=== PATIENT | male | born 1940 | race Caucasian/White ===

== ENCOUNTER 2016-10-21 11:48 | Inpatient (IN) | payer MEDICAID ==
[~2016-10-21] VITALS: Ht 162.6 cm; Wt 73.5 kg
[2016-10-21 11:51] VITALS: Ht 162.6 cm; Wt 73.5 kg
[2016-10-21] MEDS ORDERED: ALBUTEROL 0.083% (NEB) 2.5 MG/3 ML AMP NEB STA (12:10)
[2016-10-21] MEDS ORDERED: IPRATROPIUM (NEB) 0.5 MG/2.5 ML AMP NEB STA (12:10)
[2016-10-21] MEDS ORDERED: SIMV10TA PO (12:10)
[2016-10-21] MEDS ORDERED: AZITHROMYCIN 500MG/NS (PMX) 250 ML IV STA (12:10)
[2016-10-21] MEDS ORDERED: SODIUM CHLORIDE 0.9% 1L BAG IV* STA (12:10)
[2016-10-21] MEDS ORDERED: CEFTRIAXONE 1 GM/50 ML (PMX) 50 ML IVPB STA (12:10)
[2016-10-21] MEDS ORDERED: MOME13HF2 INHALATION (12:11)
[2016-10-21] MEDS ORDERED: AMLO5TAB4 PO (12:11)
[2016-10-21] MEDS ORDERED: ACETAMINOPHEN 500 MG TAB PO STA (12:16)
--- NOTE | 2016-10-21 12:16 | ERA ---
ER Documentation Chief Complaint Date/Time DATE: 10/21/16 TIME: 12:12 Chief Complaint dizziness, clifford, cough/congestion; HPI Press Bucker use. Pleasant 75-year-old male history of hypertension, prediabetes who presents with 3 days of cough congestion. The patient describes mildly productive cough, shortness of breath and increased respiratory effort over this timeframe. He also describes generalized malaise and dizziness. His family member states headache but he denies headache. No rash, no neck stiffness. He denies of any abdominal pain, nausea vomiting or diarrhea. He states that he has not been hospitalized in the last 3 months. ROS All systems reviewed and are negative except as per history of present illness. Medications Home Meds Reported Medications Amlodipine Besylate* (Norvasc*) 5 Mg Tablet, 5 MG PO DAILY, TAB 10/21/16 Mometasone-Formoterol (Dulera) 100-5 Mcg - 13 Gm Hfa.aer.ad, 2 PUFFS INHALATION DAILY, #1 INHALER 10/21/16 Simvastatin* (Zocor*) 10 Mg Tablet, 10 MG PO QHS, #30 TAB 10/21/16 Allergies Allergies: Coded Allergies: No Known Allergy (Unverified , 10/21/16) PMhx/Soc As documented in HPI FmHx Family History: No diabetes Physical Exam Vitals Vital Signs Date Time Temp Pulse Resp B/P Pulse Ox O2 Delivery O2 Flow Rate FiO2 10/21/16 12:23 105 18 94 21 10/21/16 11:51 100.1 110 22 148/64 91 Physical Exam General: Well developed, well nourished, no acute distress Head: Normocephalic, atraumatic. Eyes: Pupils equally reactive, EOM intact ENT: Moist mucous membranes Neck: Supple, no lymphadenopathy Respiratory: Slight tachypnea, rales at the left base with slight increased work of breathing Cardiovascular: Slight tachycardia, no murmurs, rubs, or gallops Abdominal: Soft, non-tender, non-distended, no peritoneal signs : Deferred MSK: No edema, no unilateral swelling, 5/5 strength Neurologic: Alert and oriented, moving all extremities, normal speech, no focal weakness, no cerebellar signs, no meningismus Skin: No rash Psych: Normal mood Result Diagram: 10/21/16 1215 10/21/16 1215 Results 24 hrs Laboratory Tests Test 10/21/16 12:15 White Blood Count 10.610^3/ul Red Blood Count 4.4410^6/ul Hemoglobin 12.8g/dl Hematocrit 40.1% Mean Corpuscular Volume 90.3fl Mean Corpuscular Hemoglobin 28.8pg Mean Corpuscular Hemoglobin Concent 31.9g/dl Red Cell Distribution Width 13.8% Platelet Count 52310^3/UL Mean Platelet Volume 12.0fl Neutrophils % 78.6% Lymphocytes % 10.0% Monocytes % 9.1% Eosinophils % 1.3% Basophils % 0.3% Nucleated Red Blood Cells % 0.0/100WBC Neutrophils # 8.310^3/ul Lymphocytes # 1.110^3/ul Monocytes # 1.010^3/ul Eosinophils # 0.110^3/ul Basophils # 0.010^3/ul Nucleated Red Blood Cells # 0.010^3/ul Prothrombin Time 14.4Sec Prothrombin Time Ratio 1.1 INR International Normalized Ratio 1.12 Activated Partial Thromboplast Time 33.2Sec Sodium Level 140mmol/L Potassium Level 3.8mmol/L Chloride Level 99mmol/L Carbon Dioxide Level 26mmol/L Anion Gap 19 Blood Urea Nitrogen 20mg/dl Creatinine 1.06mg/dl Glucose Level 149mg/dl Lactic Acid Level 2.0mmol/L Calcium Level 9.1mg/dl Total Bilirubin 0.3mg/dl Direct Bilirubin 0.00mg/dl Indirect Bilirubin 0.3mg/dl Aspartate Amino Transf (AST/SGOT) 39IU/L Alanine Aminotransferase (ALT/SGPT) 48IU/L Alkaline Phosphatase 132IU/L Troponin I < 0.012ng/ml Total Protein 8.1g/dl Albumin 3.9g/dl Globulin 4.20g/dl Albumin/Globulin Ratio 0.92 Current Medications Medications (Trade) Dose Ordered Sig/Peri Route PRN Reason Start Time Stop Time Status Last Admin Dose Admin Sodium Chloride 2280 ml 2,280 ml BOLUS OVER 2 HOURS STAT IV* 10/21/16 12:10 10/21/16 12:12 DC 10/21/16 12:29 Ceftriaxone Sodium 50 ml @ 100 mls/hr ONCE STAT IVPB 10/21/16 12:10 10/21/16 12:39 DC 5/18/17 12:29 Azithromycin (Zithromax 500mg/ NS (Pmx)) 250 ml @ 250 mls/hr ONCE STAT IV 10/21/16 12:10 10/21/16 13:09 DC Albuterol (Proventil 0.083% (Neb)) 2.5 mg ONCE STAT NEB 10/21/16 12:10 10/21/16 12:13 DC 10/21/16 12:22 Ipratropium [place] (Atrovent 0.02% (Neb)) 0.5 mg ONCE STAT NEB 10/21/16 12:10 10/21/16 12:13 DC 10/21/16 12:22 Acetaminophen (Tylenol Tab) 1,000 mg ONCE STAT PO 10/21/16 12:16 10/21/16 12:27 DC 10/21/16 12:29 Procedures/MDM EKG, MONITORS, & DIAGNOSTIC IMAGING: EKG: I reviewed and interpreted a 12-lead EKG. Rhythm: Normal sinus rhythm Ectopy: None Intervals: No abnormalities ST segments: No elevations or depressions T waves: No contiguous inversions Chest x-ray: I reviewed and interpreted a 1 view of the chest Mediastinum: No enlargement Cardiac silhouette: No cardiomegaly Airspace: Bilateral lower lung infiltrates right greater than left Bones: No evidence of fracture LAB INTERPRETATION: No significant leukocytosis but left shift, normal lactic acid, electrolytes normal MEDICAL DECISION MAKING: The patient presents with signs and symptoms very consistent with acute community-acquired pneumonia. The patient has Sirs criteria with tachypnea, tachycardia. His oxygen saturation is less than 95% on room air. The patient has no risk factors for healthcare associated pneumonia. He will benefit from breathing treatment, fluid resuscitation, severe sepsis screening, and likely inpatient hospitalization. At this time the patient does not require positive pressure ventilation, intubation, pressor support. No indication for central line presently. ER COURSE: A 30 cc/kg bolus of saline provided. Patient was given antipyretic, breathing treatment, ceftriaxone, azithromycin after blood cultures. At this time the patient does not meet severe sepsis criteria. However, the patient does have persistent oxygen requirement. I would recommend inpatient hospitalization. The family and patient agree. I kept the patient and/or family informed of laboratory and diagnostic imaging results throughout the emergency room course. DISPOSITION PLAN: Medical surgical admission for management of community-acquired pneumonia CONSULTATION: Accepting care team and consultations: I discussed the current laboratory data, diagnostic imaging and emergency care provided. Admitting team: Dr. Wolf Admitting team indication: Insurance directed Departure Diagnosis: Primary Impression: Community acquired pneumonia Additional Impressions: Sepsis Qualified Code: A41.9 - Sepsis, due to unspecified organism Hypoxia Condition: Stable RENEA MOBLEY MD October 21, 2016 12:16
[2016-10-21 12:45] LABS: ADD SCAN DIFF NO
[2016-10-21 12:50] LABS: BASOPHILS % 0.3 % (0.0-2.0); EOSINOPHILS # 0.1 10^3/ul (0.0-0.5); EOSINOPHILS % 1.3 % (0.0-7.0); HEMATOCRIT 40.1 % (42.0-52.0); HEMOGLOBIN 12.8 g/dl (14.0-18.0); LYMPHOCYTES # 1.1 10^3/ul (0.8-2.9); MEAN CORPUSCULAR HEMOGLOBIN 28.8 pg (29.0-33.0); MEAN CORPUSCULAR HGB CONC 31.9 g/dl (32.0-37.0); MEAN CORPUSCULAR VOLUME 90.3 fl (82.0-101.0); MONOCYTES % 9.1 % (0.0-11.0); NEUTROPHIL # 8.3 10^3/ul (1.6-7.5); NEUTROPHILS % 78.6 % (39.0-77.0); PLATELET COUNT 206 10^3/UL (140-415); RED BLOOD COUNT 4.44 10^6/ul (4.70-6.10); RED CELL DISTRIBUTION WIDTH 13.8 % (11.5-14.5); WHITE BLOOD COUNT 10.6 10^3/ul (4.8-10.8)
--- NOTE | 2016-10-21 12:56 | RADRPT ---
PROCEDURE: XR Chest 1 view. CLINICAL INDICATION: Shortness of breath, possible sepsis TECHNIQUE: AP views of the chest were obtained. COMPARISON: None. FINDINGS: The heart is large. Calcified atherosclerosis is noted in the aorta. The lungs are hypoinflated. P atchy atelectasis versus mild infiltrates are seen at the lung bases. No pneumothorax as visualized. The osseous structures are osteopenic, but appear grossly intact. Degenerative changes are noted in the shoulders. IMPRESSION: Cardiomegaly with calcified atherosclerosis in the aorta. Hypoinflated lungs with patchy atelectasis versus mild infiltrates at the lung bases. RPTAT: AA .Kush Ghosh MD, MD Date Time Electronically viewed and signed by .Kush Ghosh MD, MD on 10/21/2016 12:55 .P/
[2016-10-21 13:02] LABS: ALBUMIN 3.9 g/dl (3.3-4.9); CHLORIDE 99 mmol/L (97-110)
[2016-10-21 13:03] LABS: INR 1.12; POTASSIUM 3.8 mmol/L (3.5-5.1); PROTIME 14.4 Sec (12.2-14.2); PT RATIO 1.1; SODIUM 140 mmol/L (135-144)
[2016-10-21 13:04] LABS: PARTIAL THROMBOPLASTIN TIME 33.2 Sec (25.0-35.0)
[2016-10-21 13:05] LABS: ALANINE AMINOTRANSFERASE 48 IU/L (13-69); ALBUMIN/GLOBULIN RATIO 0.92; ALKALINE PHOSPHATASE 132 IU/L (42-121); ANION GAP 19 (8-16); ASPARTATE AMINO TRANSFERASE 39 IU/L (15-46); BILIRUBIN,INDIRECT 0.3 mg/dl (0-1.1); BILIRUBIN,TOTAL 0.3 mg/dl (0.2-1.3); BLOOD UREA NITROGEN 20 mg/dl (7-20); CARBON DIOXIDE 26 mmol/L (21-31); CREATININE 1.06 mg/dl (0.61-1.24); TOTAL PROTEIN 8.1 g/dl (6.1-8.1)
[2016-10-21 13:06] LABS: CALCIUM 9.1 mg/dl (8.4-10.2); GLUCOSE 149 mg/dl (70-220)
[2016-10-21 13:19] LABS: TROPONIN-I < 0.012 ng/ml (0.00-0.12)
[2016-10-21] MEDS ORDERED: ONDANSETRON 4 MG INJ IV PRN ×2 (14:30→15:30)
[2016-10-21] MEDS ORDERED: ACETAMINOPHEN 325 MG TAB PO PRN ×2 (14:30→15:30)
[2016-10-21 15:08] LABS: ADD UMIC YES; URINE BILIRUBIN (Dip) NEGATIVE (NEGATIVE); URINE BLOOD (Dip) 1+ (NEGATIVE); URINE COLOR YELLOW (YELLOW); URINE GLUCOSE (Dip) NEGATIVE (NEGATIVE); URINE KETONES (Dip) NEGATIVE (NEGATIVE); URINE LEUKOCYTE ESTERASE (Dip) 3+ (NEGATIVE); URINE NITRITE (Dip) NEGATIVE (NEGATIVE); URINE TOTAL PROTEIN (Dip) NEGATIVE (NEGATIVE); URINE UROBILINOGEN (Dip) 0.2 E.U./dL (0.1-1.0)
[2016-10-21] MEDS ORDERED: morphine 2 MG INJ IV PRN (15:30)
[2016-10-21] MEDS ORDERED: hydrALAzine 20 MG INJ IV PRN (15:30)
[2016-10-21] MEDS ORDERED: BISACODYL (EC) 5 MG TAB PO PRN (15:30)
[2016-10-21] MEDS ORDERED: MAGNESIUM HYDROXIDE 30ML CUP PO PRN (15:30)
[2016-10-21] MEDS ORDERED: HYDROCODONE/APAP (5/325) TAB PO PRN (15:30)
[2016-10-21] MEDS ORDERED: NACL 0.9% 3 ML SYG IV SCH (15:30)
[2016-10-21 15:31] LABS: BACTERIA,URINE MANY
--- NOTE | 2016-10-21 16:21 | HP ---
DATE OF ADMISSION: 10/21/2016 TIME OF EVALUATION: 1500. REASON FOR ADMISSION: Dizziness, cough, congestion. HISTORY OF PRESENT ILLNESS: This is a 75-year-old male with past medical history of essential hypertension and dyslipidemia who came to the emergency room with chief complaint of cough, chest congestion, and dizziness that has been going on for the past and 3 days. The patient was also complaining of a productive cough and increased respiratory effort. He also verbalized generalized malaise and dizziness. The patient denied any headache, although the patient's family members reported a headache. There was no recent travel outside the country. There is no recent hospitalization in the past 3 months. The patient denied any chest pain. He denied any nausea, vomiting, abdominal pain, diarrhea, hematochezia or dysuria. The patient's family verbalized that he has been compliant with his home medications. The patient was noticed to be taking Dulera at home. The patient's family denied any history of COPD. In the emergency room, the patient was noticed to have febrile illness with a temperature of 100.1. The patient had no leukocytosis. He underwent a chest x- ray that showed cardiomegaly with calcified atherosclerosis in the aorta, along with hypoinflated lungs with patchy atelectasis versus mild infiltrates at the lung bases. The patient's urinalysis showed urine leukocyte esterase 3+, urine microscopic WBC greater than 200. The patient was treated with IV Rocephin and IV Zithromax in the emergency room along with inhaled bronchodilators and IV fluids. PAST MEDICAL HISTORY: Essential hypertension, dyslipidemia. PAST SURGICAL HISTORY: Prostate surgery. HOME MEDICATIONS: 1. Amlodipine 5 mg p.o. daily. 2. Dulera 100/5 mcg 2 puffs inhalation daily. 3. Zocor 10 mg p.o. at bedtime. ALLERGIES: NO KNOWN DRUG ALLERGIES. SOCIAL HISTORY: The patient lives at home with his family. No history of tobacco, alcohol or illicit drug use recently. REVIEW OF SYSTEMS: A 12-point review of systems were made and review of systems were negative other than what is mentioned in history of present illness. PHYSICAL EXAMINATION: VITAL SIGNS: Temperature 100.1, pulse rate 105, respiratory rate 18, blood pressure 142/60, oxygen saturation 94% on room air. GENERAL: This is slightly overweight male lying in bed in no apparent distress. HEENT: Head normocephalic and atraumatic. Eyes: Anicteric sclerae. Conjunctivae clear. ENT: Nasal septum is midline. Oral mucosa is dry. NECK: Supple. No JVD noticed. RESPIRATORY: Bilateral diminished breath sounds. Bilateral scattered rhonchi heard. No use of accessory muscles of respiration. CARDIAC: Regular rate and rhythm with a grade II/ systolic ejection murmur. GASTROINTESTINAL: Distended, nontender. Bowel sounds positive in all 4 quadrants. GENITOURINARY: Deferred. EXTREMITIES: No cyanosis, no clubbing, no edema. Peripheral pulses palpable. NEUROLOGIC: The patient is awake, alert and oriented. Cranial nerves are grossly intact. LABORATORY AND DIAGNOSTIC DATA: WBC 10.6, hemoglobin 12.8, hematocrit 40.1, platelet count 206. WBC 10.6. hemoglobin 12.8, hematocrit 40.1, platelet count 206. Sodium 140, potassium 3.8, chloride 99, carbon dioxide 26, anion gap 19, BUN 20, creatinine 1.00, glucose 149, calcium 9.1, total bilirubin 0.3, AST 39, ALT 48, alkaline phosphatase 132. Troponin I less than 0.012. Total protein 8.1. PT 14.4, INR 1.13, PTT 33.2. Urinalysis: Urine nitrite negative, urine leukocyte esterase 3+, urine microscopic WBC greater than 200. Chest x-ray: Cardiomegaly with calcified atherosclerosis in the aorta. Hypoinflated lungs with patchy atelectasis versus mild infiltrates at the lung bases. 12-lead EKG: Normal sinus rhythm. IMPRESSION: This is a 75-year-old male with past medical history of essential hypertension and dyslipidemia who came to the emergency room with multiple complaints. He was found to have evidence of sepsis with underlying community- acquired pneumonia and possible underlying urinary tract infection. He will be admitted here for further treatment and evaluation. ASSESSMENT AND PLAN: 1. Sepsis, most probably secondary to underlying pneumonia and urinary tract infection. No evidence of septic shock. Lactic acid level is within normal limits. The patient will be started on empiric antibiotics. Pancultures will be obtained. 2. Community-acquired pneumonia. The patient will be continued on Rocephin and Zithromax. Sputum sample will be obtained. The patient will be maintained on inhaled bronchodilators. The patient had chest congestion upon physical examination. 3. Essential hypertension. The patient will be maintained on antihypertensives including p.r.n. antihypertensives for any systolic blood pressure readings greater than 160 mmHg. 4. Possible underlying urinary tract infection. Positive urinalysis. Urine cultures will be obtained. The patient will be maintained on empiric antibiotics. 5. Dyslipidemia. The patient will be maintained on statins. A fasting lipid panel will be obtained. 6. Normocytic hypochromic anemia. Etiology unclear. Will monitor the hemoglobin and hematocrit closely. We will order an iron panel. Plan. The patient will be admitted to inpatient medical/surgical floor. The patient will be started on a regular diet. The patient will be started on deep venous thrombosis prophylaxis and gastrointestinal prophylaxis. The patient will remain a FULL CODE. Activities will be as tolerated. Based on the patient's clinical presentation, he most probably requires at least 1 midnight's stay for further management and evaluation of his clinical presentation. The case and management of this patient was fully discussed with Dr. Keith. MARY KEITH MD, AM/LYNETTE Conf#: [id number] DID#: [id number] MTDD
[2016-10-21 16:46] LABS: IRON 19 ug/dl (35-150)
[2016-10-21 16:54] LABS: TOTAL IRON BINDING CAPACITY 215 ug/dl (241-421)
[2016-10-21 17:15] LABS: THYROID STIMULATING HORMONE 6.26 MIU/L (0.465-4.680)
[2016-10-21] MEDS: SOD CHLORIDE 0.9% 1,000 ML IV SCH (17:32)
[2016-10-21 18:11] VITALS: BP 149/67; PULSE 82; RESP 18; TEMP 97.9
[2016-10-21] MEDS: ATORVASTATIN 10 MG TAB PO SCH (20:48)
[2016-10-21] MEDS: FAMOTIDINE 20 MG TAB PO SCH (20:48)
[2016-10-21 20:55] VITALS: BP 137/65; RESP 17
[2016-10-21] MEDS: ALBUTEROL/IPRATROPIUM (NEB) 3 ML AMP NEB SCH (22:34)
[2016-10-21] MEDS: SALMETEROL/FLUTICASONE 250/50 INHA INH SCH (23:00)
[2016-10-22] MEDS: ALBUTEROL/IPRATROPIUM (NEB) 3 ML AMP NEB SCH ×4 (01:47→19:42)
[2016-10-22 05:29] LABS: ADD SCAN DIFF NO
[2016-10-22 05:35] LABS: BASOPHILS % 0.2 % (0.0-2.0); EOSINOPHILS # 0.2 10^3/ul (0.0-0.5); EOSINOPHILS % 2.3 % (0.0-7.0); HEMATOCRIT 36.5 % (42.0-52.0); HEMOGLOBIN 11.5 g/dl (14.0-18.0); LYMPHOCYTES # 0.9 10^3/ul (0.8-2.9); LYMPHOCYTES % 9.2 % (15.0-51.0); MEAN CORPUSCULAR HEMOGLOBIN 28.5 pg (29.0-33.0); MEAN CORPUSCULAR HGB CONC 31.5 g/dl (32.0-37.0); MEAN CORPUSCULAR VOLUME 90.6 fl (82.0-101.0); MEAN PLATELET VOLUME 12.3 fl (7.4-10.4); MONOCYTE # 0.8 10^3/ul (0.3-0.9); MONOCYTES % 8.8 % (0.0-11.0); NEUTROPHIL # 7.5 10^3/ul (1.6-7.5); PLATELET COUNT 196 10^3/UL (140-415); RED BLOOD COUNT 4.03 10^6/ul (4.70-6.10); RED CELL DISTRIBUTION WIDTH 13.8 % (11.5-14.5); WHITE BLOOD COUNT 9.5 10^3/ul (4.8-10.8)
[2016-10-22 05:54] LABS: CHOL/HDL RATIO 5.7 RATIO; PHOSPHORUS 3.3 mg/dl (2.5-4.9); POTASSIUM 3.8 mmol/L (3.5-5.1)
[2016-10-22 05:56] LABS: CREATININE 0.78 mg/dl (0.61-1.24)
[2016-10-22 05:57] LABS: CALCIUM 8.2 mg/dl (8.4-10.2)
[2016-10-22 06:02] LABS: TROPONIN-I 0.012 ng/ml (0.00-0.12)
[2016-10-22 08:13] VITALS: BP 151/68; RESP 17
[2016-10-22] MEDS: FAMOTIDINE 20 MG TAB PO SCH ×2 (08:32→20:45)
[2016-10-22] MEDS: SALMETEROL/FLUTICASONE 250/50 INHA INH SCH ×2 (08:32→20:45)
[2016-10-22] MEDS: AMLODIPINE 5 MG TAB PO SCH (08:33)
[2016-10-22] MEDS: ENOXAPARIN 40 MG/0.4 ML SYG SC SCH (08:41)
[2016-10-22] MEDS: SOD CHLORIDE 0.9% 1,000 ML IV SCH (11:55)
[2016-10-22] MEDS: CEFTRIAXONE 1 GM/50 ML (PMX) 50 ML IVPB SCH (12:01)
--- NOTE | 2016-10-22 12:07 | PN ---
Date/Time of Note Date/Time of Note DATE: 10/22/16 TIME: 12:06 Assessment/Plan VTE Prophylaxis VTE Prophylaxis Intervention: LMWH Lines/Catheters IV Catheter Type (from [facility]): Peripheral IV Assessment/Plan Chief Complaint/Hosp Course 1. Sepsis, most probably secondary to underlying pneumonia and urinary tract infection. No evidence of septic shock. Continue empiric antibiotics. Pancultures pending. 2. Community-acquired pneumonia. The patient will be continued on Rocephin and Zithromax. 3. Essential hypertension. The patient will be maintained on antihypertensives including p.r.n. antihypertensives for any systolic blood pressure readings greater than 160 mmHg. 4. Possible underlying urinary tract infection. Positive urinalysis. Urine cultures will be obtained. The patient will be maintained on empiric antibiotics. 5. Dyslipidemia. The patient will be maintained on statins. 6. Normocytic hypochromic anemia. Etiology unclear. Iron panel showing iron deficiency. Will start the patient on iron supplements. 7. Intermittent abdominal pain. Etiology unclear. Will obtain abdominal imaging to further evaluate this. The patient will be started on a bowel regimen since the patient was complaining of constipation. 8. Fluids, electrolytes, and nutrition. Low-cholesterol diet. 9. DVT prophylaxis. Subcutaneous Lovenox. 10. Gastrointestinal prophylaxis. Histamine 2 receptor blockers. 11. Plan. Continue antibiotics. Start bowel regimen. Obtain CT scan of the abdomen without IV contrast. Case discussed with Dr. Wolf. The plan of care was explained to the patient's family who was at the bedside. Problems: Subjective 24 Hr Interval Summary Free Text/Dictation Complains of right lower quadrant crampy pain. Had a febrile episode in the morning. Exam/Review of Systems Vital Signs Vitals Vital Signs Date Time Temp Pulse Resp B/P Pulse Ox O2 Delivery O2 Flow Rate FiO2 10/22/16 08:13 99.9 82 17 151/68 92 10/22/16 08:05 21 10/22/16 01:51 2.0 10/21/16 18:11 Room Air Intake and Output 10/21/16 10/21/16 10/22/16 15:00 23:00 07:00 Intake Total 2330 ml 950 ml Balance 2330 ml 950 ml Exam GENERAL: This is slightly overweight male lying in bed in no apparent distress. HEENT: Head normocephalic and atraumatic. Eyes: Anicteric sclerae. Conjunctivae clear. ENT: Nasal septum is midline. Oral mucosa is dry. NECK: Supple. No JVD noticed. RESPIRATORY: Bilateral diminished breath sounds. Bilateral scattered rhonchi heard. No use of accessory muscles of respiration. CARDIAC: Regular rate and rhythm with a grade II/ systolic ejection murmur. GASTROINTESTINAL: Distended. Bowel sounds positive in all 4 quadrants. Right lower quadrant tenderness. GENITOURINARY: Deferred. EXTREMITIES: No cyanosis, no clubbing, no edema. Peripheral pulses palpable. NEUROLOGIC: The patient is awake and alert. Cranial nerves are grossly intact. Results Result Diagram: 10/22/16 0435 10/22/16 0435 Results 24 hrs Laboratory Tests Test 10/21/16 12:15 10/21/16 12:50 10/21/16 14:10 10/21/16 14:50 White Blood Count 10.6 Red Blood Count 4.44 L Hemoglobin 12.8 L Hematocrit 40.1 L Mean Corpuscular Volume 90.3 Mean Corpuscular Hemoglobin 28.8 L Mean Corpuscular Hemoglobin Concent 31.9 L Red Cell Distribution Width 13.8 Platelet Count 206 Mean Platelet Volume 12.0 H Neutrophils % 78.6 H Lymphocytes % 10.0 L Monocytes % 9.1 Eosinophils % 1.3 Basophils % 0.3 Nucleated Red Blood Cells % 0.0 Neutrophils # 8.3 H Lymphocytes # 1.1 Monocytes # 1.0 H Eosinophils # 0.1 Basophils # 0.0 Nucleated Red Blood Cells # 0.0 Prothrombin Time 14.4 H Prothrombin Time Ratio 1.1 INR International Normalized Ratio 1.12 Activated Partial Thromboplast Time 33.2 Sodium Level 140 Potassium Level 3.8 Chloride Level 99 Carbon Dioxide Level 26 Anion Gap 19 H Blood Urea Nitrogen 20 Creatinine 1.06 Glucose Level 149 Lactic Acid Level 2.0 1.7 Calcium Level 9.1 Total Bilirubin 0.3 Direct Bilirubin 0.00 Indirect Bilirubin 0.3 Aspartate Amino Transf (AST/SGOT) 39 Alanine Aminotransferase (ALT/SGPT) 48 Alkaline Phosphatase 132 H Troponin I < 0.012 Total Protein 8.1 Albumin 3.9 Globulin 4.20 H Albumin/Globulin Ratio 0.92 Iron Level 19 L Total Iron Binding Capacity 215 L Percent Iron Saturation 9 L Free Thyroxine 1.14 Urine Color YELLOW Urine Clarity CLOUDY H Urine pH 7.0 Urine Specific [place] 1.010 Urine Ketones NEGATIVE Urine Nitrite NEGATIVE Urine Bilirubin NEGATIVE Urine Urobilinogen 0.2 E.U./dL Urine Leukocyte Esterase 3+ H Urine Microscopic RBC 2-5 Urine Microscopic WBC >200 Urine Bacteria MANY Urine Hemoglobin 1+ H Urine Glucose NEGATIVE Urine Total Protein NEGATIVE Test 10/21/16 16:10 10/22/16 04:35 Lactic Acid Level 1.8 Ferritin 164.0 Thyroid Stimulating Hormone (TSH) 6.260 H White Blood Count 9.5 Red Blood Count 4.03 L Hemoglobin 11.5 L Hematocrit 36.5 L Mean Corpuscular Volume 90.6 Mean Corpuscular Hemoglobin 28.5 L Mean Corpuscular Hemoglobin Concent 31.5 L Red Cell Distribution Width 13.8 Platelet Count 196 Mean Platelet Volume 12.3 H Neutrophils % 79.0 H Lymphocytes % 9.2 L Monocytes % 8.8 Eosinophils % 2.3 Basophils % 0.2 Nucleated Red Blood Cells % 0.0 Neutrophils # 7.5 Lymphocytes # 0.9 Monocytes # 0.8 Eosinophils # 0.2 Basophils # 0.0 Nucleated Red Blood Cells # 0.0 Sodium Level 141 Potassium Level 3.8 Chloride Level 105 Carbon Dioxide Level 25 Anion Gap 15 Blood Urea Nitrogen 13 Creatinine 0.78 Glucose Level 100 # Calcium Level 8.2 L Phosphorus Level 3.3 Magnesium Level 2.0 Troponin I 0.012 Triglycerides Level 102 Cholesterol Level 114 LDL Cholesterol, Calculated 74 HDL Cholesterol 20 L Cholesterol/HDL Ratio 5.7 Medications Medications Current Medications Sodium Chloride (NS) 1,000 ml @ 60 mls/hr [id number] IV Last administered on 10/22t 11:55; Admin Dose 60 MLS/HR; Start 10/21/16 at 15:30 Ondansetron HCl (Zofran Inj) 4 mg Q6H PRN IV NAUSEA AND/OR VOMITING; Start at 15:30 Acetaminophen (Tylenol Tab) 650 mg Q6H PRN PO PAIN LEVEL 1-3 OR FEVER; Start at 15:30 Acetaminophen/ Hydrocodone Bitart ([place] (5/325)) 1 tab Q6H PRN PO MODERATE PAIN LEVEL 4-6; Start 10/21/16 at 15:30 Morphine Sulfate (morphine) 2 mg Q4H PRN IV SEVERE PAIN LEVEL 7-10; Start 5/18 /17 at 15:30 Magnesium Hydroxide (Milk Of Mag) 30 ml DAILY PRN PO CONSTIPATION; Start at 15:30 Bisacodyl (Dulcolax) 5 mg DAILY PRN PO CONSTIPATION; Start 10/21/16 at 15:30 Famotidine (Pepcid) 20 mg Q12 PO Last administered on 10/22/16 08:32; Admin Dose 20 MG; Start 10/21/16 at 21:00 Enoxaparin Sodium 40 mg 40 mg DAILY SC Last administered on 10/22/16 08:41; Admin Dose 40 MG; Start 10/22/16 at 09:00 Ceftriaxone Sodium 50 ml @ 100 mls/hr Q24H IVPB Last administered on 12:01; Admin Dose 100 MLS/HR; Start 10/22/16 at 12:00 Azithromycin (Zithromax 500mg/ NS (Pmx)) 250 ml @ 250 mls/hr Q24H IV ; Start at 14:00 Hydralazine HCl (Apresoline) 10 mg Q6H PRN IV SBP>160; Start 10/21/16 at 15:30 Amlodipine Besylate (Norvasc) 5 mg DAILY PO Last administered on 10/22/16 08: 33; Admin Dose 5 MG; Start 10/22/16 at 09:00 Salmeterol Xinafoate/ Fluticasone (Advair 250/50 Diskus) 1 inh BID INH Last administered on 10/22/16 08:32; Admin Dose 1 INH; Start 10/21/16 at 21:00 Atorvastatin Calcium (Lipitor) 10 mg DAILY@21 PO Last administered on 20:48; Admin Dose 10 MG; Start 10/21/16 at 21:00 MARY HALLMAN NP October 22, 2016 12:07
[2016-10-22] MEDS ORDERED: BARIUM SULF 2% 450 ML BTL (BERRY SMOOTHIE) PO ONE (13:30)
[2016-10-22] MEDS: SOD FERRIC GLUC COMPLX 125 MG in SOD CHLORIDE 0.9% 100 ML IVPB SCH (13:58)
[2016-10-22] MEDS: POLYETHYLENE GLYCOL 17 GM PACKET PO SCH ×2 (14:00→20:45)
[2016-10-22] MEDS: DOCUSATE SODIUM 100 MG CAP PO SCH ×2 (14:00→20:45)
[2016-10-22] MEDS: AZITHROMYCIN 500MG/NS (PMX) 250 ML IV SCH (16:07)
--- NOTE | 2016-10-22 16:14 | RADRPT ---
AMENDMENT: 10/22/2016 4:30:33 PM Chance Ny M.d Impression: 6. Cholelithiasis. PROCEDURE: CT abdomen and pelvis without IV contrast. CLINICAL INDICATION: Abdominal pain TECHNIQUE: CT scan of the abdomen and pelvis without contrast was performed on the Dctio volumetric [address] scanner. The patient was scanned without intravenous contrast. Coronal and sagittal refo rmatted images were obtained from the axial source images. The CTDI vol is 18.02 mGy and the DLP is 1075.52 mGy-cm. COMPARISON: None. FINDINGS: CT abdomen: Patchy air space disease in the right lung base and left lower lobe is seen. A trace right pleural effusion is seen. The heart size is not enlarged and is without pericardial thickening or effusion. The liver is normal in size and density and is without focal mass or intrahepatic biliary dilatation . The spleen is normal in size and homogeneous in density. The stomach is grossly unremarkable. T he pancreas as visualized is normal. Multiple gallstones are seen. The adrenal glands are symmetric and normal. The kidneys are symmetrically unremarkable as well. Suggestion of small hemorrhagic cy sts in the left kidney are seen with the largest measuring 7 mm in size. The bilateral renal pelves are mild to moderately dilated with urothelial thickening. No renal calculus or mass lesion is seen . Aortoiliac vascular calcifications are seen. The infrarenal abdominal aorta is mildly aneurysmal me asuring 3.2 cm in maximal diameter. In addition, the aorta and iliac vasculature is tortuous in cou rse. There is no retroperitoneal lymphadenopathy. The bindu hepatis region is clear. The large b owel is stool-filled. The small and large bowel and mesentery, as visualized, are otherwise unremark able. No inflammatory changes in the periappendiceal region is seen. CT pelvis: The pelvic organs are normal. The pelvic sidewalls and inguinal regions are clear. No pelvic mass, lymphadenopathy, or free fluid is seen. No acute inflammation is seen. The urinary bladder is dis tended with wall thickening. In addition, calcific densities within the bladder wall are seen.. Diffuse osteopenia is seen. Degenerative spondylosis of the lumbar spine is seen. No osteolytic or osteoblastic lesion is detected. IMPRESSION: 1. Bibasilar patchy air space disease which may represent infiltrates with a trace right pleural ef fusion. Continued chest x-ray follow-up until resolution is suggested. 2. Mild to moderately dilated bilateral renal pelves with urothelial thickening. Consider correlat ion urinalysis as clinically warranted. 3. Distended urinary bladder with wall thickening with calcifications. 4. Stool filled large bowel. 5. Mild aneurysmal dilatation of the infrarenal abdominal aorta. RPTAT: HPNM Bo Ny Physician Date Time Electronically viewed and signed by Bo Ny, Physician on 10/22/2016 16:30 /
[2016-10-22 17:23] VITALS: BP 162/76
[2016-10-22 20:00] VITALS: BP 172/89; RESP 19
[2016-10-22] MEDS: TAMSULOSIN (SR) 0.4 MG CAP PO SCH (20:45)
[2016-10-22] MEDS: ATORVASTATIN 10 MG TAB PO SCH (20:45)
[2016-10-22 22:30] VITALS: BP 143/64; PULSE 90
[2016-10-23] MEDS: SOD CHLORIDE 0.9% 1,000 ML IV SCH ×2 (00:50→16:49)
[2016-10-23] MEDS: ALBUTEROL/IPRATROPIUM (NEB) 3 ML AMP NEB SCH ×4 (02:08→19:20)
[2016-10-23 06:09] LABS: ADD SCAN DIFF NO
[2016-10-23 06:14] LABS: BASOPHILS % 0.3 % (0.0-2.0); EOSINOPHILS # 0.3 10^3/ul (0.0-0.5); HEMATOCRIT 36.5 % (42.0-52.0); HEMOGLOBIN 11.5 g/dl (14.0-18.0); LYMPHOCYTES # 0.8 10^3/ul (0.8-2.9); MEAN CORPUSCULAR HEMOGLOBIN 28.2 pg (29.0-33.0); MEAN CORPUSCULAR HGB CONC 31.5 g/dl (32.0-37.0); MEAN CORPUSCULAR VOLUME 89.5 fl (82.0-101.0); MEAN PLATELET VOLUME 11.8 fl (7.4-10.4); MONOCYTE # 0.9 10^3/ul (0.3-0.9); MONOCYTES % 9.7 % (0.0-11.0); NEUTROPHIL # 7.4 10^3/ul (1.6-7.5); NEUTROPHILS % 78.2 % (39.0-77.0); PLATELET COUNT 210 10^3/UL (140-415); RED BLOOD COUNT 4.08 10^6/ul (4.70-6.10); RED CELL DISTRIBUTION WIDTH 13.9 % (11.5-14.5); WHITE BLOOD COUNT 9.5 10^3/ul (4.8-10.8)
[2016-10-23 06:23] LABS: POTASSIUM 3.6 mmol/L (3.5-5.1)
[2016-10-23 06:25] LABS: CREATININE 0.75 mg/dl (0.61-1.24)
[2016-10-23 06:26] LABS: CALCIUM 8.6 mg/dl (8.4-10.2)
[2016-10-23 06:58] LABS: MAGNESIUM 1.9 mg/dl (1.7-2.5); PHOSPHORUS 3.6 mg/dl (2.5-4.9)
[2016-10-23 08:13] VITALS: BP 148/70; RESP 20
[2016-10-23] MEDS: ENOXAPARIN 40 MG/0.4 ML SYG SC SCH ×2 (09:00→09:34)
[2016-10-23] MEDS: DOCUSATE SODIUM 100 MG CAP PO SCH ×2 (09:33→21:52)
[2016-10-23] MEDS: AMLODIPINE 5 MG TAB PO SCH (09:33)
[2016-10-23] MEDS: SALMETEROL/FLUTICASONE 250/50 INHA INH SCH ×2 (09:33→21:52)
[2016-10-23] MEDS: TAMSULOSIN (SR) 0.4 MG CAP PO SCH ×2 (09:33→21:52)
[2016-10-23] MEDS: POLYETHYLENE GLYCOL 17 GM PACKET PO SCH ×2 (09:33→21:51)
[2016-10-23] MEDS: FAMOTIDINE 20 MG TAB PO SCH ×2 (09:33→21:52)
--- NOTE | 2016-10-23 10:41 | PN ---
Date/Time of Note Date/Time of Note DATE: 10/23/16 TIME: 10:37 Assessment/Plan VTE Prophylaxis VTE Prophylaxis Intervention: LMWH Lines/Catheters IV Catheter Type (from [facility]): Peripheral IV Urinary Cath still in place: Yes Assessment/Plan Chief Complaint/Hosp Course Assessment and plan 1. Sepsis secondary to underlying pneumonia and also UTI. Continue antibiotics. Urine cultures pending at this time. Follow-up on chest radiograph 2. Community acquired pneumonia. Appears to be improving on Rocephin and Zithromax. We will add antitussives for cough 3. Essential hypertension. Continue antihypertensives and adjust the 3. Suspect UTI. Patient with positive leukocyte esterase test. Follow-up on urine culture. Continue antibiotics for now. Noted to have some hematuria. Will plan for irrigation of the bladder. Will get urologist pending clinical course. 4. Dyslipidemia. Continue on statin medication 5. Anemia. Noted to be with iron deficiency. Continue iron supplement 6. Abdominal pain. Abdominal imaging does show some stool-filled large bowel. Likely patient with constipation. Will continue on bowel regimen. Suppository as needed DVT prophylaxis: Lovenox GERD prophylaxis: H2 sujit Disposition plan: Follow-up on chest radiograph. Antitussives for cough. Await for clinical improvement of respiratory status. Follow-up on urine culture. Monitor for further hematuria Discussed plan of care with Dr. Wolf Problems: Subjective 24 Hr Interval Summary Free Text/Dictation Still with reported congested cough. Is still noted to be wheezing. Was reported per RN to have some blood-streaked and Maier catheter Exam/Review of Systems Vital Signs Vitals Vital Signs Date Time Temp Pulse Resp B/P Pulse Ox O2 Delivery O2 Flow Rate FiO2 10/23/16 08:13 99.1 100 20 148/70 92 10/23/16 07:22 21 10/22/16 16:08 2.0 10/21/16 18:11 Room Air Intake and Output 10/22/16 10/22/16 10/23/16 15:00 23:00 07:00 Intake Total 435 ml 950 ml 900 ml Output Total 1800 ml 2800 ml Balance 435 ml -850 ml -1900 ml Exam Constitutional: alert, oriented, other (hard of hearing) Psych: nl mood/affect Head: normocephalic Neck: supple, No jvd Respiratory: other (wheezing and congested bilateral lung walters ) Gastrointestinal: non-tender, soft Musculoskeletal: nl extremities to inspection Extremities: normal pulses Neurological: nl mental status, nl speech Skin: nl turgor Results Result Diagram: 10/23/1631 10/23/16 0531 Results 24 hrs Laboratory Tests Test 10/23/16 05:31 White Blood Count 9.5 Red Blood Count 4.08 L Hemoglobin 11.5 L Hematocrit 36.5 L Mean Corpuscular Volume 89.5 Mean Corpuscular Hemoglobin 28.2 L Mean Corpuscular Hemoglobin Concent 31.5 L Red Cell Distribution Width 13.9 Platelet Count 210 Mean Platelet Volume 11.8 H Neutrophils % 78.2 H Lymphocytes % 8.0 L Monocytes % 9.7 Eosinophils % 3.0 Basophils % 0.3 Nucleated Red Blood Cells % 0.0 Neutrophils # 7.4 Lymphocytes # 0.8 Monocytes # 0.9 Eosinophils # 0.3 Basophils # 0.0 Nucleated Red Blood Cells # 0.0 Sodium Level 142 Potassium Level 3.6 Chloride Level 105 Carbon Dioxide Level 26 Anion Gap 15 Blood Urea Nitrogen 10 Creatinine 0.75 Glucose Level 110 Calcium Level 8.6 Phosphorus Level 3.6 Magnesium Level 1.9 Medications Medications Current Medications Sodium Chloride (NS) 1,000 ml @ 60 mls/hr [id number] IV Last administered on 10/22t 11:55; Admin Dose 60 MLS/HR; Start 10/21/16 at 15:30 Ondansetron HCl (Zofran Inj) 4 mg Q6H PRN IV NAUSEA AND/OR VOMITING; Start at 15:30 Acetaminophen (Tylenol Tab) 650 mg Q6H PRN PO PAIN LEVEL 1-3 OR FEVER; Start at 15:30 Acetaminophen/ Hydrocodone Bitart ([place] (5/325)) 1 tab Q6H PRN PO MODERATE PAIN LEVEL 4-6; Start 10/21/16 at 15:30 Morphine Sulfate (morphine) 2 mg Q4H PRN IV SEVERE PAIN LEVEL 7-10; Start 10/21 at 15:30 Magnesium Hydroxide (Milk Of Mag) 30 ml DAILY PRN PO CONSTIPATION; Start at 15:30 Bisacodyl (Dulcolax) 5 mg DAILY PRN PO CONSTIPATION; Start 10/21/16 at 15:30 Famotidine (Pepcid) 20 mg Q12 PO Last administered on 10/23/16 09:33; Admin Dose 20 MG; Start 10/21/16 at 21:00 Enoxaparin Sodium 40 mg 40 mg DAILY SC Last administered on 10/22/16 08:41; Admin Dose 40 MG; Start 10/22/16 at 09:00 Ceftriaxone Sodium 50 ml @ 100 mls/hr Q24H IVPB Last administered on 12:01; Admin Dose 100 MLS/HR; Start 10/22/16 at 12:00 Azithromycin (Zithromax 500mg/ NS (Pmx)) 250 ml @ 250 mls/hr Q24H IV Last administered on 10/22/16 16:07; Admin Dose 250 MLS/HR; Start 10/22/16 at 14:00 Hydralazine HCl (Apresoline) 10 mg Q6H PRN IV SBP>160; Start 10/21/16 at 15:30 Amlodipine Besylate (Norvasc) 5 mg DAILY PO Last administered on 10/23/16 09: 33; Admin Dose 5 MG; Start 10/22/16 at 09:00 Salmeterol Xinafoate/ Fluticasone (Advair 250/50 Diskus) 1 inh BID INH Last administered on 10/23/16 09:33; Admin Dose 1 INH; Start 10/21/16 at 21:00 Atorvastatin Calcium 10 mg 10 mg DAILY@21 PO Last administered on 10/22/16 20: 45; Admin Dose 10 MG; Start 10/21/16 at 21:00 Ferric Sodium Gluconate Complex/ Sodium Chloride (Ferrlecit/NS) 110 ml @ 100 mls/hr Q24H IVPB Last administered on 10/22/16 13:58; Admin Dose 100 MLS/HR; Start 10/22/16 at 13:00; Stop 10/24/16 at 14:05 Polyethylene Glycol (Miralax) 17 gm BID PO Last administered on 10/23/16 09:33 ; Admin Dose 17 GM; Start 10/22/16 at 13:00 Docusate Sodium (Colace) 100 mg BID PO Last administered on 10/23/16 09:33; Admin Dose 100 MG; Start 10/22/16 at 13:00 Tamsulosin HCl (Flomax) 0.4 mg BID PO Last administered on 10/23/16t 09:33; Admin Dose 0.4 MG; Start 10/22/16 at 21:00 FRANCIA COLEMAN October 23, 2016 10:41
[2016-10-23] MEDS: CEFTRIAXONE 1 GM/50 ML (PMX) 50 ML IVPB SCH (13:43)
[2016-10-23] MEDS: GUAIFENESIN LA 600 MG TABSR PO SCH ×2 (13:43→21:52)
[2016-10-23] MEDS: SOD FERRIC GLUC COMPLX 125 MG in SOD CHLORIDE 0.9% 100 ML IVPB SCH (14:38)
[2016-10-23] MEDS: AZITHROMYCIN 500MG/NS (PMX) 250 ML IV SCH (16:47)
[2016-10-23 20:37] VITALS: BP 130/62; RESP 16
[2016-10-23] MEDS: ATORVASTATIN 10 MG TAB PO SCH (21:52)
[2016-10-24] MEDS: ALBUTEROL/IPRATROPIUM (NEB) 3 ML AMP NEB SCH ×4 (01:15→19:39)
[2016-10-24 06:19] LABS: ADD SCAN DIFF NO
[2016-10-24 06:22] LABS: BASOPHILS % 0.3 % (0.0-2.0); EOSINOPHILS # 0.5 10^3/ul (0.0-0.5); EOSINOPHILS % 4.9 % (0.0-7.0); HEMATOCRIT 39.7 % (42.0-52.0); HEMOGLOBIN 12.5 g/dl (14.0-18.0); LYMPHOCYTES # 1.1 10^3/ul (0.8-2.9); LYMPHOCYTES % 11.8 % (15.0-51.0); MEAN CORPUSCULAR HEMOGLOBIN 28.2 pg (29.0-33.0); MEAN CORPUSCULAR HGB CONC 31.5 g/dl (32.0-37.0); MEAN CORPUSCULAR VOLUME 89.6 fl (82.0-101.0); MEAN PLATELET VOLUME 12.1 fl (7.4-10.4); MONOCYTE # 0.9 10^3/ul (0.3-0.9); MONOCYTES % 9.4 % (0.0-11.0); NEUTROPHIL # 6.6 10^3/ul (1.6-7.5); NEUTROPHILS % 72.5 % (39.0-77.0); PLATELET COUNT 239 10^3/UL (140-415); RED BLOOD COUNT 4.43 10^6/ul (4.70-6.10); RED CELL DISTRIBUTION WIDTH 14.3 % (11.5-14.5); WHITE BLOOD COUNT 9.2 10^3/ul (4.8-10.8)
[2016-10-24 06:51] LABS: CALCIUM 9.1 mg/dl (8.4-10.2); CREATININE 0.71 mg/dl (0.61-1.24); POTASSIUM 4.2 mmol/L (3.5-5.1)
[2016-10-24 08:02] VITALS: BP 136/66; RESP 19
[2016-10-24] MEDS: SALMETEROL/FLUTICASONE 250/50 INHA INH SCH ×2 (09:43→20:21)
[2016-10-24] MEDS: DOCUSATE SODIUM 100 MG CAP PO SCH ×2 (09:44→20:21)
[2016-10-24] MEDS: AMLODIPINE 5 MG TAB PO SCH (09:44)
[2016-10-24] MEDS: POLYETHYLENE GLYCOL 17 GM PACKET PO SCH ×2 (09:44→20:21)
[2016-10-24] MEDS: GUAIFENESIN LA 600 MG TABSR PO SCH ×2 (09:44→20:21)
[2016-10-24] MEDS: TAMSULOSIN (SR) 0.4 MG CAP PO SCH ×2 (09:44→20:21)
[2016-10-24] MEDS: ENOXAPARIN 40 MG/0.4 ML SYG SC SCH (09:45)
[2016-10-24] MEDS: FAMOTIDINE 20 MG TAB PO SCH ×2 (09:45→20:21)
[2016-10-24] MEDS: SOD CHLORIDE 0.9% 1,000 ML IV SCH (11:46)
--- NOTE | 2016-10-24 12:22 | PN ---
Date/Time of Note Date/Time of Note DATE: 10/24/16 TIME: 12:18 Assessment/Plan VTE Prophylaxis VTE Prophylaxis Intervention: LMWH Lines/Catheters IV C[facility]ter Type (from [facility]): Peripheral IV Urinary Cath still in place: Yes Reason Cath still needed: urinary retention Assessment/Plan Chief Complaint/Hosp Course 1. Sepsis, most probably secondary to underlying pneumonia and urinary tract infection. No evidence of septic shock. Continue empiric antibiotics. Pancultures negative so far. 2. Community-acquired pneumonia. The patient will be continued on Rocephin and Zithromax. 3. Essential hypertension. The patient will be maintained on antihypertensives including p.r.n. antihypertensives for any systolic blood pressure readings greater than 160 mmHg. 4. Possible underlying urinary tract infection. Positive urinalysis. Urine cultures inconclusive. 5. Urinary retention. Most probably secondary to BPH. S/P Maier. Started the patient on alpha blockers. 5. Dyslipidemia. The patient will be maintained on statins. 6. Normocytic hypochromic anemia. Etiology unclear. Iron panel showing iron deficiency. Continue iron supplements. 7. Intermittent abdominal pain. Abdominal CT showed stool impaction and urinary retention. Continue bowel regimen. Will give a Fleets enema today. 8. Fluids, electrolytes, and nutrition. Low-cholesterol diet. 9. DVT prophylaxis. Subcutaneous Lovenox. 10. Gastrointestinal prophylaxis. Histamine 2 receptor blockers. 11. Plan. Continue antibiotics. Fleets enema today. DC Maier after getting urine sample. Repeat CXR. Case discussed with Dr. Wolf. Problems: Subjective 24 Hr Interval Summary Free Text/Dictation Complains of abdominal distension. Exam/Review of Systems Vital Signs Vitals Vital Signs Date Time Temp Pulse Resp B/P Pulse Ox O2 Delivery O2 Flow Rate FiO2 10/24/16 08:11 95 2.0 10/24/16 08:03 88 15 21 10/24/16 08:02 98.4 136/66 10/23/16 19:21 Nasal Cannula Intake and Output 10/23/16 10/23/16 10/24/16 15:00 23:00 07:00 Intake Total 110 ml 1920 ml 1260 ml Output Total 2000 ml 1600 ml Balance 110 ml -80 ml -340 ml Exam GENERAL: This is slightly overweight male lying in bed in no apparent distress. HEENT: Head normocephalic and atraumatic. Eyes: Anicteric sclerae. Conjunctivae clear. ENT: Nasal septum is midline. Oral mucosa is dry. NECK: Supple. No JVD noticed. RESPIRATORY: Bilateral diminished breath sounds. Bilateral scattered rhonchi heard. No use of accessory muscles of respiration. CARDIAC: Regular rate and rhythm with a grade II/ systolic ejection murmur. GASTROINTESTINAL: Distended. Bowel sounds positive in all 4 quadrants. Non- tender. EXTREMITIES: No cyanosis, no clubbing, no edema. Peripheral pulses palpable. NEUROLOGIC: The patient is awake and alert. Cranial nerves are grossly intact. Results Result Diagram: 10/24/1616 10/24/1616 Results 24 hrs Laboratory Tests Test 10/24/16 05:16 White Blood Count 9.2 Red Blood Count 4.43 L Hemoglobin 12.5 L Hematocrit 39.7 L Mean Corpuscular Volume 89.6 Mean Corpuscular Hemoglobin 28.2 L Mean Corpuscular Hemoglobin Concent 31.5 L Red Cell Distribution Width 14.3 Platelet Count 239 Mean Platelet Volume 12.1 H Neutrophils % 72.5 Lymphocytes % 11.8 L Monocytes % 9.4 Eosinophils % 4.9 Basophils % 0.3 Nucleated Red Blood Cells % 0.0 Neutrophils # 6.6 Lymphocytes # 1.1 Monocytes # 0.9 Eosinophils # 0.5 Basophils # 0.0 Nucleated Red Blood Cells # 0.0 Sodium Level 138 Potassium Level 4.2 Chloride Level 105 Carbon Dioxide Level 26 Anion Gap 11 Blood Urea Nitrogen 10 Creatinine 0.71 Glucose Level 110 Calcium Level 9.1 Medications Medications Current Medications Sodium Chloride (NS) 1,000 ml @ 60 mls/hr [id number] IV Last administered on 10/24t 11:46; Admin Dose 60 MLS/HR; Start 10/21/16 at 15:30 Ondansetron HCl (Zofran Inj) 4 mg Q6H PRN IV NAUSEA AND/OR VOMITING; Start at 15:30 Acetaminophen (Tylenol Tab) 650 mg Q6H PRN PO PAIN LEVEL 1-3 OR FEVER; Start at 15:30 Acetaminophen/ Hydrocodone Bitart ([place] (5/325)) 1 tab Q6H PRN PO MODERATE PAIN LEVEL 4-6; Start 10/21/16 at 15:30 Morphine Sulfate (morphine) 2 mg Q4H PRN IV SEVERE PAIN LEVEL 7-10; Start 10/21 at 15:30 Magnesium Hydroxide (Milk Of Mag) 30 ml DAILY PRN PO CONSTIPATION; Start at 15:30 Bisacodyl (Dulcolax) 5 mg DAILY PRN PO CONSTIPATION; Start 10/21/16 at 15:30 Famotidine (Pepcid) 20 mg Q12 PO Last administered on 10/24/16 09:45; Admin Dose 20 MG; Start 10/21/16 at 21:00 Enoxaparin Sodium 40 mg 40 mg DAILY SC Last administered on 10/24/16 09:45; Admin Dose 40 MG; Start 10/22/16 at 09:00 Ceftriaxone Sodium 50 ml @ 100 mls/hr Q24H IVPB Last administered on 13:43; Admin Dose 100 MLS/HR; Start 10/22/16 at 12:00 Azithromycin (Zithromax 500mg/ NS (Pmx)) 250 ml @ 250 mls/hr Q24H IV Last administered on 10/23/16 16:47; Admin Dose 250 MLS/HR; Start 10/22/16 at 14:00 Hydralazine HCl (Apresoline) 10 mg Q6H PRN IV SBP>160; Start 10/21/16 at 15:30 Amlodipine Besylate (Norvasc) 5 mg DAILY PO Last administered on 10/24/16 09: 44; Admin Dose 5 MG; Start 10/22/16 at 09:00 Salmeterol Xinafoate/ Fluticasone (Advair 250/50 Diskus) 1 inh BID INH Last administered on 10/24/16 09:43; Admin Dose 1 INH; Start 10/21/16 at 21:00 Atorvastatin Calcium 10 mg 10 mg DAILY@21 PO Last administered on 10/23/16 21: 52; Admin Dose 10 MG; Start 10/21/16 at 21:00 Ferric Sodium Gluconate Complex/ Sodium Chloride (Ferrlecit/NS) 110 ml @ 100 mls/hr Q24H IVPB Last administered on 10/23/16 14:38; Admin Dose 100 MLS/HR; Start 10/22/16 at 13:00; Stop 10/24/16 at 14:05 Polyethylene Glycol (Miralax) 17 gm BID PO Last administered on 10/24/16 09:44 ; Admin Dose 17 GM; Start 10/22/16 at 13:00 Docusate Sodium (Colace) 100 mg BID PO Last administered on 10/24/16 09:44; Admin Dose 100 MG; Start 10/22/16 at 13:00 Tamsulosin HCl (Flomax) 0.4 mg BID PO Last administered on 10/24/16 09:44; Admin Dose 0.4 MG; Start 10/22/16 at 21:00 Guaifenesin (Mucinex) 600 mg BID PO Last administered on 10/24/16 09:44; Admin Dose 600 MG; Start 10/23/16 at 11:00 MARY HALLMAN NP October 24, 2016 12:22
[2016-10-24] MEDS ORDERED: NA PHOSPHATE/BIPHOS 133 ML ENEMA PR ONE (12:30)
[2016-10-24] MEDS: CEFTRIAXONE 1 GM/50 ML (PMX) 50 ML IVPB SCH (12:32)
[2016-10-24] MEDS: SOD FERRIC GLUC COMPLX 125 MG in SOD CHLORIDE 0.9% 100 ML IVPB SCH (13:45)
[2016-10-24 14:38] LABS: ADD UMIC YES; URINE BILIRUBIN (Dip) NEGATIVE (NEGATIVE); URINE BLOOD (Dip) 3+ (NEGATIVE); URINE COLOR LT. YELLOW (YELLOW); URINE GLUCOSE (Dip) NEGATIVE (NEGATIVE); URINE KETONES (Dip) NEGATIVE (NEGATIVE); URINE LEUKOCYTE ESTERASE (Dip) 1+ (NEGATIVE); URINE NITRITE (Dip) NEGATIVE (NEGATIVE); URINE TOTAL PROTEIN (Dip) 1+ (NEGATIVE); URINE UROBILINOGEN (Dip) 0.2 E.U./dL (0.1-1.0)
[2016-10-24] MEDS: AZITHROMYCIN 500MG/NS (PMX) 250 ML IV SCH (14:49)
--- NOTE | 2016-10-24 17:27 | RADRPT ---
PROCEDURE: XR Chest. CLINICAL INDICATION: Shortness of breath. TECHNIQUE: Single frontal view. COMPARISON: 10/21/2016. FINDINGS: There is mild atelectasis at the lung bases, slightly improved on the right and slightly worse on th e left. The lungs are otherwise clear. The heart size is normal. There is calcification in the aorta consistent with atherosclerosis. There is no pleural effusion. There is no pneumothorax. IMPRESSION: 1. Slightly improved appearance of the right lung base and slightly worse appearance of the left patricia ng base. 2. Atherosclerosis. 3. Otherwise unremarkable chest radiograph. RPTAT: QQ .Mj Redd MD, MD Date Time Electronically viewed and signed by .Mj Redd MD, MD on 10/24/2016 17:27 .R/
[2016-10-24] MEDS: ATORVASTATIN 10 MG TAB PO SCH (20:21)
[2016-10-24 20:33] VITALS: BP 125/67; RESP 18
[2016-10-25] MEDS: ALBUTEROL/IPRATROPIUM (NEB) 3 ML AMP NEB SCH ×3 (01:42→14:20)
[2016-10-25] MEDS: SOD CHLORIDE 0.9% 1,000 ML IV SCH ×2 (02:50→12:17)
[2016-10-25 06:16] LABS: ADD SCAN DIFF NO
[2016-10-25 06:20] LABS: BASOPHILS % 0.5 % (0.0-2.0); EOSINOPHILS # 0.5 10^3/ul (0.0-0.5); EOSINOPHILS % 6.3 % (0.0-7.0); HEMATOCRIT 37.6 % (42.0-52.0); LYMPHOCYTES # 0.9 10^3/ul (0.8-2.9); MEAN CORPUSCULAR HEMOGLOBIN 28.6 pg (29.0-33.0); MEAN CORPUSCULAR HGB CONC 31.9 g/dl (32.0-37.0); MEAN CORPUSCULAR VOLUME 89.7 fl (82.0-101.0); MEAN PLATELET VOLUME 12.2 fl (7.4-10.4); MONOCYTE # 0.8 10^3/ul (0.3-0.9); MONOCYTES % 9.3 % (0.0-11.0); NEUTROPHIL # 6.1 10^3/ul (1.6-7.5); NEUTROPHILS % 71.5 % (39.0-77.0); PLATELET COUNT 258 10^3/UL (140-415); RED BLOOD COUNT 4.19 10^6/ul (4.70-6.10); RED CELL DISTRIBUTION WIDTH 14.2 % (11.5-14.5); WHITE BLOOD COUNT 8.6 10^3/ul (4.8-10.8)
[2016-10-25 07:01] LABS: POTASSIUM 3.8 mmol/L (3.5-5.1)
[2016-10-25 07:02] LABS: PHOSPHORUS 4.5 mg/dl (2.5-4.9)
[2016-10-25 07:04] LABS: CREATININE 0.7 mg/dl (0.61-1.24)
[2016-10-25 07:05] LABS: CALCIUM 8.8 mg/dl (8.4-10.2)
[2016-10-25 08:28] VITALS: BP 152/68; RESP 22
[2016-10-25] MEDS: GUAIFENESIN LA 600 MG TABSR PO SCH (08:32)
[2016-10-25] MEDS: FAMOTIDINE 20 MG TAB PO SCH (08:32)
[2016-10-25] MEDS: POLYETHYLENE GLYCOL 17 GM PACKET PO SCH (08:32)
[2016-10-25] MEDS: TAMSULOSIN (SR) 0.4 MG CAP PO SCH (08:32)
[2016-10-25] MEDS: DOCUSATE SODIUM 100 MG CAP PO SCH (08:32)
[2016-10-25] MEDS: SALMETEROL/FLUTICASONE 250/50 INHA INH SCH (08:32)
[2016-10-25] MEDS: AMLODIPINE 5 MG TAB PO SCH (08:33)
[2016-10-25] MEDS: ENOXAPARIN 40 MG/0.4 ML SYG SC SCH (08:34)
--- NOTE | 2016-10-25 10:22 | PN ---
Date/Time of Note Date/Time of Note DATE: 10/25/16 TIME: 10:20 Assessment/Plan VTE Prophylaxis VTE Prophylaxis Intervention: LMWH Lines/Catheters IV C[facility]ter Type (from [facility]): Peripheral IV Urinary Cath still in place: Yes Reason Cath still needed: urinary retention Assessment/Plan Chief Complaint/Hosp Course 1. Sepsis, most probably secondary to underlying pneumonia and urinary tract infection. No evidence of septic shock. Continue empiric antibiotics. Pancultures negative so far. 2. Community-acquired pneumonia. The patient will be continued on Rocephin and Zithromax. 3. Essential hypertension. The patient will be maintained on antihypertensives including p.r.n. antihypertensives for any systolic blood pressure readings greater than 160 mmHg. 4. Possible underlying urinary tract infection. Positive urinalysis. Urine cultures inconclusive. Repeat urine studies pending. 5. Urinary retention. Most probably secondary to BPH. S/P Maier. Started the patient on alpha blockers. The patient continues to urinary retention status post discontinuation of Maier catheter. We will call urology consult. 5. Dyslipidemia. The patient will be maintained on statins. 6. Normocytic hypochromic anemia. Etiology unclear. Iron panel showing iron deficiency. Continue iron supplements. 7. Intermittent abdominal pain. Abdominal CT showed stool impaction and urinary retention. Continue bowel regimen. 8. Fluids, electrolytes, and nutrition. Low-cholesterol diet. 9. DVT prophylaxis. Subcutaneous Lovenox. 10. Gastrointestinal prophylaxis. Histamine 2 receptor blockers. 11. Plan. Continue antibiotics. Will obtain urology consult. Talk to Dr. Cifuentes, urology at 10:[address] Cifuentes, he instructed to reinsert the Maier catheter and he will see the patient sometime today. Case discussed with Dr. Luu. Problems: Subjective 24 Hr Interval Summary Free Text/Dictation The patient continues to have urinary retention. The patient had a straight catheterization last night for relief of urinary retention. Exam/Review of Systems Vital Signs Vitals Vital Signs Date Time Temp Pulse Resp B/P Pulse Ox O2 Delivery O2 Flow Rate FiO2 10/25/16 08:28 98.4 86 22 152/68 94 10/25/16 08:05 Nasal Cannula 2.0 10/24/16 08:03 21 Intake and Output 10/24/16 10/24/16 10/25/16 15:00 23:00 07:00 Intake Total 2090 ml 1020 ml Output Total 450 ml 950 ml Balance 1640 ml 70 ml Exam GENERAL: This is slightly overweight male lying in bed in no apparent distress. HEENT: Head normocephalic and atraumatic. Eyes: Anicteric sclerae. Conjunctivae clear. ENT: Nasal septum is midline. Oral mucosa is dry. NECK: Supple. No JVD noticed. RESPIRATORY: Bilateral diminished breath sounds. Bilateral scattered rhonchi heard. No use of accessory muscles of respiration. CARDIAC: Regular rate and rhythm with a grade II/ systolic ejection murmur. GASTROINTESTINAL: Distended. Bowel sounds positive in all 4 quadrants. Non- tender. EXTREMITIES: No cyanosis, no clubbing, no edema. Peripheral pulses palpable. NEUROLOGIC: The patient is awake and alert. Cranial nerves are grossly intact. Results Result Diagram: 10/25/165 10/25/165 Results 24 hrs Laboratory Tests Test 10/24/16 14:05 10/25/16 04:45 Urine Color LT. YELLOW Urine Clarity CLEAR Urine pH 7.0 Urine Specific [place] 1.010 Urine Ketones NEGATIVE Urine Nitrite NEGATIVE Urine Bilirubin NEGATIVE Urine Urobilinogen 0.2 E.U./dL Urine Leukocyte Esterase 1+ H Urine Microscopic RBC 5-10 Urine Microscopic WBC 5-10 Urine Hemoglobin 3+ H Urine Glucose NEGATIVE Urine Total Protein 1+ H White Blood Count 8.6 Red Blood Count 4.19 L Hemoglobin 12.0 L Hematocrit 37.6 L Mean Corpuscular Volume 89.7 Mean Corpuscular Hemoglobin 28.6 L Mean Corpuscular Hemoglobin Concent 31.9 L Red Cell Distribution Width 14.2 Platelet Count 258 Mean Platelet Volume 12.2 H Neutrophils % 71.5 Lymphocytes % 11.0 L Monocytes % 9.3 Eosinophils % 6.3 Basophils % 0.5 Nucleated Red Blood Cells % 0.0 Neutrophils # 6.1 Lymphocytes # 0.9 Monocytes # 0.8 Eosinophils # 0.5 Basophils # 0.0 Nucleated Red Blood Cells # 0.0 Sodium Level 141 Potassium Level 3.8 Chloride Level 103 Carbon Dioxide Level 25 Anion Gap 17 H Blood Urea Nitrogen 11 Creatinine 0.70 Glucose Level 100 Calcium Level 8.8 Phosphorus Level 4.5 Magnesium Level 2.0 Medications Medications Current Medications Sodium Chloride (NS) 1,000 ml @ 60 mls/hr [id number] IV Last administered on 10/24 11:46; Admin Dose 60 MLS/HR; Start 10/21/16 at 15:30 Ondansetron HCl (Zofran Inj) 4 mg Q6H PRN IV NAUSEA AND/OR VOMITING; Start at 15:30 Acetaminophen (Tylenol Tab) 650 mg Q6H PRN PO PAIN LEVEL 1-3 OR FEVER; Start at 15:30 Acetaminophen/ Hydrocodone Bitart ([place] (5/325)) 1 tab Q6H PRN PO MODERATE PAIN LEVEL 4-6; Start 10/21/16 at 15:30 Morphine Sulfate (morphine) 2 mg Q4H PRN IV SEVERE PAIN LEVEL 7-10; Start 10/21 at 15:30 Magnesium Hydroxide (Milk Of Mag) 30 ml DAILY PRN PO CONSTIPATION; Start at 15:30 Bisacodyl (Dulcolax) 5 mg DAILY PRN PO CONSTIPATION; Start 10/21/16 at 15:30 Famotidine (Pepcid) 20 mg Q12 PO Last administered on 10/25/16 08:32; Admin Dose 20 MG; Start 10/21/16 at 21:00 Enoxaparin Sodium 40 mg 40 mg DAILY SC Last administered on 10/25/16 08:34; Admin Dose 40 MG; Start 10/22/16 at 09:00 Ceftriaxone Sodium 50 ml @ 100 mls/hr Q24H IVPB Last administered on 12:32; Admin Dose 100 MLS/HR; Start 10/22/16 at 12:00 Azithromycin (Zithromax 500mg/ NS (Pmx)) 250 ml @ 250 mls/hr Q24H IV Last administered on 10/24/16 14:49; Admin Dose 250 MLS/HR; Start 10/22/16 at 14:00 Hydralazine HCl (Apresoline) 10 mg Q6H PRN IV SBP>160; Start 10/21/16 at 15:30 Amlodipine Besylate (Norvasc) 5 mg DAILY PO Last administered on 10/25/16 08: 33; Admin Dose 5 MG; Start 10/22/16 at 09:00 Salmeterol Xinafoate/ Fluticasone (Advair 250/50 Diskus) 1 inh BID INH Last administered on 10/25/16 08:32; Admin Dose 1 INH; Start 10/21/16 at 21:00 Atorvastatin Calcium (Lipitor) 10 mg DAILY@21 PO Last administered on 20:21; Admin Dose 10 MG; Start 10/21/16 at 21:00 Polyethylene Glycol (Miralax) 17 gm BID PO Last administered on 10/25/16 08:32 ; Admin Dose 17 GM; Start 10/22/16 at 13:00 Docusate Sodium (Colace) 100 mg BID PO Last administered on 10/25/16 08:32; Admin Dose 100 MG; Start 10/22/16 at 13:00 Tamsulosin HCl (Flomax) 0.4 mg BID PO Last administered on 10/25/16 08:32; Admin Dose 0.4 MG; Start 10/22/16 at 21:00 Guaifenesin (Mucinex) 600 mg BID PO Last administered on 10/25/16 08:32; Admin Dose 600 MG; Start 10/23/16 at 11:00 MARY HALLMAN NP October 25, 2016 10:22
[2016-10-25] MEDS: CEFTRIAXONE 1 GM/50 ML (PMX) 50 ML IVPB SCH (12:16)
--- NOTE | 2016-10-25 14:25 | PDOCDIS ---
Discharge Instructions DIAGNOSIS Discharge Diagnosis: Community-acquired pneumonia. CONDITION Patient Condition: Stable HOME CARE INSTRUCTIONS: Diet Instructions: Low Fat /Cholesterol FOLLOW UP/APPOINTMENTS Appointments Pavel Benjamin MD Specialty: Internal Medicine Office Address: [address] [place], [place] [id number] Office OTHER ORDERS: Other Orders: 1. Take medications as per prescription. Use [id number] stool softeners for constipation. 2. Low-cholesterol, preferably carbohydrate low diet. 3. Resume activities as tolerated. 4. Follow-up with your primary care physician in 1 week. If you do not have a primary care physician, please call Dr. Pavel Benjamin's office. Have your primary care physician arrange for outpatient neurology follow-up. MARY HALLMAN NP October 25, 2016 14:25
[2016-10-25] MEDS ORDERED: FER325 PO (14:26)
[2016-10-25] MEDS ORDERED: TAMS-14 PO (14:26)
[2016-10-25] MEDS: AZITHROMYCIN 500MG/NS (PMX) 250 ML IV SCH (14:36)
--- NOTE | 2016-10-25 15:55 | DS ---
DATE OF ADMISSION: 10/21/2016 DATE OF DISCHARGE: 10/25/2016 FINAL DIAGNOSES: 1. Community-acquired pneumonia. 2. Sepsis secondary community-acquired pneumonia. 3. Essential hypertension. 4. Urinary retention secondary to benign prostatic hypertrophy. 5. Dyslipidemia. 6. Iron deficiency anemia. 7. Abdominal pain secondary to stool impaction, resolved. HOSPITAL COURSE: This is a 75-year-old male with past medical history of essential hypertension and dyslipidemia who came to the emergency room with chief complaint of cough, chest congestion and dizziness that has been going on for a 3-day period. The patient was also complaining of productive cough and increased respiratory effort. He also verbalized malaise and dizziness. The patient denied any headache although the patient's family members reported headache. There was no recent history of travel outside the country. There is no recent hospitalization in the past 3 months. The patient denied any chest pain. The patient denied nausea, vomiting, abdominal pain, diarrhea, hematochezia, or dysuria. The patient verbalized that he has been compliant with his home medications. In the emergency room, the patient was noticed to have a febrile illness with a temperature 100.1. The patient had no leukocytosis. He underwent a chest x-ray that showed cardiomegaly with calcified atherosclerosis in the aorta and with hypoinflated lungs with patchy atelectasis versus infiltrate at the lung bases. The patient's urinalysis showed leukocyte esterase 3+. The urine microscopic WBCs greater than 200. He was treated with IV Rocephin and Zithromax in the emergency room and was admitted to inpatient medical surgical floor. Pancultures were ordered on this patient. The patient's reyes cultures remained negative since admission. Urine culture was inconclusive. The patient's influenza A and B screen was negative. The patient's symptoms are improving. Meanwhile, the patient started complaining of abdominal distention and abdominal pain. The patient underwent a CT scan of the abdomen and pelvis that showed bibasilar patchy airspace disease and also mild to moderately dilated bilateral renal pelvis with urothelial thickening. CT also revealed distended urinary bladder with wall thickening and calcification and stool filled large bowel. Consequently, the patient was started on a bowel regimen with improvement in the patient's symptoms. A Maier catheter was inserted with drainage of extensive amount of urine. The patient was started on alpha of blockers. The patient has history of prostate surgery. However, the patient's family was unable to give me clarification of what type of prostate surgery. The patient's CT scan of the abdomen and pelvis was not mentioning specifically about the prostate gland. The patient's PSA was within normal limits. The patient's Maier catheter was discontinued on 10/24/2016. The patient continued to have urinary retention and the patient had to be straight catheterized around 3:35 a.m. on 10/25/2016. Consequently, a urology consult was called with Dr. Cifuentes. Dr. Cifuentes came to see the patient on 10/25/2016 but the patient refused to reinsert the Maier catheter or have any other urological workup done. The patient continued to have minimal urinary retention as evidenced by bladder scan post void volume of approximately 200 mL hour. The patient wanted to go home and did not want any further urological evaluation. Hence, the patient will be discharged home. The patient has underlying essential hypertension. He was maintained on antihypertensives for the same. The patient has underlying dyslipidemia. He was maintained on statins for the same. The patient was noticed to have anemia with underlying iron deficiency. Hence, the patient was maintained on iron supplements. The patient was also noticed to have a borderline elevated hemoglobin A1c of 6.0. The patient had a stable hospital course. The patient will be discharged home today. DISPOSITION: The patient will be discharged home today. PLAN: The patient was instructed to take medications as per prescription and to use elxz-oun-vwhrmiz stool softeners for constipation. The patient was instructed to take a low-cholesterol, preferably a carbohydrate-controlled diet. The patient was instructed to resume activities as tolerated. He was instructed to follow up with his primary care physician in 1 week and if he does not have a primary care physician to please call Dr. Pavel Benjamin's office. He was also instructed to have his primary care physician arrange for outpatient urology followup. CONDITION AT DISCHARGE: Stable. DISCHARGE MEDICATIONS: 1. Ferrous sulfate 325 mg p.o. b.i.d. 2. Flomax 0.4 mg p.o. daily. 3. Amlodipine 5 mg 2 daily. 4. Dulera 100/5 mcg at 2 puffs inhalation daily. 5. Simvastatin 10 mg p.o. at bedtime. PERTINENT LABORATORY AND DIAGNOSTIC DATA: 1. CT scan of the abdomen and pelvis. Bibasilar patchy airspace disease which may represent infiltrates with a trace right pleural effusion. Mild to moderately dilated bilateral renal pelves. Consider correlation with urinalysis. Distended urinary bladder with wall thickening with calcifications. Stool filled large bowel. Mild aneurysmal dilatation of the infrarenal abdominal aorta. 2. Latest chest x-ray done on 10/24/2016. Slightly improved appearance of the right lung base and slightly worse appearance of the left lung base. Atherosclerosis. 3. Blood culture x2 with a negative influenza. 4. Influenza A and B screen negative. 5. Urine culture. Inconclusive. 6. Repeat urine culture, negative. 7. Hemoglobin A1c 6.0. 8. Fasting lipid panel: Triglycerides 102, total cholesterol 114, LDL 74, HDL 20. 9. Latest CBC: WBC 8.6, hemoglobin 12.0, hematocrit 37.6, platelet count 250. Latest BMP: Sodium 141, potassium 3.8, chloride 103, carbon dioxide 20, anion gap 17, BUN 11, creatinine 0.70, glucose 100, calcium 8.8, phosphorus 4.7 , magnesium 2.0. 10. Iron panel: Iron 19, TIBC 215, iron saturation 9. 11. Prostate specific antigen, 2.3. The case and management of this patient was fully discussed with Dr. Quiñones. Approximately 40 minutes was spent on coordinating the discharge on this patient. MARY QUIÑONES MD, AM/LYNETTE Conf#: [id number] DID#: [id number] MTDD
== END 2016-10-25 18:04 | disposition home or self-care (01) | DRG 871 ==
LOC: E/R 11:48 → PP2 14:22
PROVIDERS: ADMIT Family Medicine; ATTEND Family Medicine
DX: A41.9 Sepsis, unspecified organism (principal); J18.9 Pneumonia, unspecified organism; N39.0 Urinary tract infection, site not specified; D64.9 Anemia, unspecified; I10 Essential (primary) hypertension; E78.5 Hyperlipidemia, unspecified; R10.31 Right lower quadrant pain; K59.00 Constipation, unspecified; N40.1 Benign prostatic hyperplasia with lower urinary tract symptoms; R33.8 Other retention of urine
CPT/HCPCS: 36415; 71010; 74176; 80048; 80053; 80061; 81001; 81003; 82728; 83036; 83540; 83605; 83735; 84100; 84153; 84154; 84439; 84443; 84484; 85025; 85610; 85730; 87040; 87045; 87086; 87400; 93005; 94640; 94664; 96365; 96366; 96375; J0456; J0696; J1650; J2916; J7030

== ENCOUNTER 2016-10-25 20:26 | Emergency (ER) | payer MEDICAID ==
[~2016-10-25] VITALS: Ht 175.3 cm; Wt 73.6 kg
[~2016-10-25 20:26] MED LIST: AMLO5TAB4 PO; FER325 PO; MOME13HF2 INHALATION; SIMV10TA PO; TAMS-14 PO
[2016-10-25 20:29] VITALS: Ht 175.3 cm; Wt 73.6 kg
--- NOTE | 2016-10-25 21:23 | ERD ---
ER Documentation Chief Complaint Date/Time DATE: 10/25/16 TIME: 21:21 Chief Complaint unable to move his right hand. no trauma. no numbess or cp/sob recent d/c HPI 75-year-old male presents to emergency department for stiffness of the right hand afternoon. Patient was just discharged from the hospital, started to have stiffness of the right hand, right now, patient is able to move it without any difficulty, no more stiffness. Patient does not have any trauma on affected area. Patient does not have any numbness or tingling. Patient does not complain of any pain. ROS All systems reviewed and are negative except as per history of present illness. Medications Home Meds Active Scripts Ferrous Sulfate* (Ferrous Sulfate*) 325 Mg Tabec, 325 MG PO BID for 30 Days, TAB Prov:MARY HALLMAN WEATHERCASTER 10/25/16 Tamsulosin Hcl* (Flomax*) 0.4 Mg Cap.er.24h, 0.4 MG PO BID for 30 Days, CAP Prov:MARY HALLMAN WEATHERCASTER 10/25/16 Reported Medications Amlodipine Besylate* (Norvasc*) 5 Mg Tablet, 5 MG PO DAILY, TAB 10/21/16 Mometasone-Formoterol (Dulera) 100-5 Mcg - 13 Gm Hfa.aer.ad, 2 PUFFS INHALATION DAILY, #1 INHALER 10/21/16 Simvastatin* (Zocor*) 10 Mg Tablet, 10 MG PO QHS, #30 TAB 10/21/16 Allergies Allergies: Coded Allergies: No Known Allergy (Unverified , 10/21/16) PMhx/Soc History of Surgery: Yes (laser surgery of the bladder 2013) Hx Neurological Disorder: No Hx Respiratory Disorders: Yes (asthma) Hx Cardiac Disorders: Yes (hypertension) Hx Psychiatric Problems: No Hx Miscellaneous Medical Probl: No Hx Alcohol Use: Yes (6 yrs ago) Hx Substance Use: No Hx Tobacco Use: No Smoking Status: Never smoker FmHx Family History: No coronary disease, No diabetes, No other Physical Exam Vitals Vital Signs Date Time Temp Pulse Resp B/P Pulse Ox O2 Delivery O2 Flow Rate FiO2 10/25/16 20:29 98.9 99 20 142/75 94 Physical Exam GENERAL: The patient is well developed and appropriate for usual state of health, in no apparent distress. CHEST: Clear to auscultation bilaterally. There are no rales, wheezes or rhonchi. HEART: Regular rate and rhythm. No murmurs, clicks, rubs or gallops. No S3 or S4. ABDOMEN: Soft, nontender and nondistended. Good bowel sounds. No rebound or guarding. No gross peritonitis. No gross organomegaly or masses. No Ruth sign or McBurney point tenderness. BACK: No midline or flank tenderness. EXTREMITIES: Able to do full range of motion of the right hand without any restriction, no stiffness noted, good pulses, no redness, no swelling, no limitation of movement of the joint. Equal pulses bilaterally. There is no peripheral clubbing, cyanosis or edema. No focal swelling or erythema. Full range of motion. Grossly neurovascularly intact. NEURO: Alert and oriented. Cranial nerves 2-12 intact. Motor strength in all 4 extremities with 5/5 strength. Sensation grossly intact. Normal speech and gait. SKIN: There is no apparent rash or petechia. The skin is warm and dry. HEMATOLOGIC AND LYMPHATIC: There is no evidence of excessive bruising or lymphedema. No gross cervical, axillary, or inguinal lymphadenopathy. Procedures/MDM Medical decision making: Patient's right hand stiffness nonspecific at this time , can be from hyperventilation syndrome, at this time, patient is able to do full range of motion of the right hand without any restriction, no numbness or tingling, no deformity, did not have any trauma on affected area. Examination of the right hand is normal, no limitation movement of the joint. Patient's family members was reassured and was told to continue to monitor., Patient was advised to return to emergency department for any worsening symptoms. Departure Diagnosis: Primary Impression: Hand joint stiff Laterality: right Qualified Code: M25.641 - Hand joint stiff, right Condition: Stable Patient Instructions: AIDA Zhang NP October 25, 2016 21:23
== END 2016-10-25 21:53 | disposition home or self-care (01) ==
LOC: FTE 20:26
DX: M25.641 Stiffness of right hand, not elsewhere classified (principal); I10 Essential (primary) hypertension; J45.909 Unspecified asthma, uncomplicated
CPT/HCPCS: 99283

== ENCOUNTER 2017-07-17 13:47 | Inpatient (IN) | END 2017-07-20 17:00 | disposition home or self-care (01) | DRG 871 ==